=== PATIENT | female | born 1950 | race Caucasian/White ===

== ENCOUNTER 2017-02-08 10:33 | Emergency (ER) | payer BC ==
--- NOTE | 2017-02-08 11:50 | UC ---
Valencia Villareal Rebecca, scribed for Soila Dillon MD on 02/08/17 at 1145 . Upper Extremity HPI - HPI Summary HPI Summary: Pt is a 66 y/o F accompanied by who presents to [facility] 1 month s/p CABG c/o L shoulder pain, left upper back. Pain began last night, described that it was "just killing" her. She took Oxycodone which completely resolved sx in 1.5 hours. Pt without pain since. Pain was characterized as stabbing and is currently ranked as 0/10. Pt denies cp, sob, abd pain. No nausea, vomiting. No lightheadedness. No marley, vision changes. PT without h/o similar. Pt relates pain to sleeping "funny" on it. No change in pain with movement. Sx alleviated by oxycodone, aggravated by nothing. Denies any back pain, CP, SOB, nausea, diaphoresis, MARLEY, lightheadedness. States that after her surgery, she has had difficulty sleeping, tossing and turning significantly last night. Takes 81 mg ASA and is not on any other blood thinners. PSHx cardiac catheterization recently. 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 PMHx arthritis. No PMHx UT, CVA. Drawer In Hand is Dr. Ortiz. - History of Current Complaint Chief Complaint: UCUpperExtremity Stated Complaint: LEFT SHOULDER PAIN-(POST OPEN HEART SURG) Hx Obtained From: Patient Onset/Duration: Lasting Days - Yesterday, Resolved Severity Initially: Severe Severity Currently: None Pain Intensity: 0 Pain Scale Used: 0-10 Numeric Location Of Pain: Is Discrete @ - L shoulder Character: Sharp - Stabbing Aggravating Factor(s): Adduction Alleviating Factor(s): Other: - Oxycodone Associated Signs And Symptoms: Positive: Negative - Allergies/Home Medications Allergies/Adverse Reactions: Allergies Allergy/AdvReac Type Severity Reaction Status Date / Time Homatropine Allergy Upset Verified 02/08/17 11:15 [From Hydrocodone Compound] Stomach Hydrocodone Allergy Unknown Verified 02/08/17 11:15 [From Hydrocodone Compound] Reaction Details Home Medications: Home Medications oxyCODONE/Acetamin 5/325 MG* [Percocet 5/325 TAB*] 1 tab PO Q4H PRN 02/08/17 [ History Confirmed 02/08/17] PMH/Surg Hx/FS Hx/Imm Hx - Additional Past Medical History Additional PMH: Arthritis - Surgical History Surgical History: Yes Surgery Procedure, Year, and Place: LEFT BREAST LUMPECTOMY 1989,2 CSECTIONS, PARTIAL PARATYROID REMOVAL. Open Heart Surgery 2017 - Family History Known Family History: Positive: Cardiac Disease, Hypertension, Diabetes - Social History Lives: With Family Alcohol Use: None Substance Use Type: None Smoking Status (MU): Never Smoked Tobacco Review of Systems Constitutional: Negative Skin: Negative Eyes: Negative ENT: Negative Respiratory: Negative Cardiovascular: Negative Gastrointestinal: Negative Genitourinary: Negative Motor: Negative Neurovascular: Negative Musculoskeletal: Other: - L shoudler pain Neurological: Negative Psychological: Negative All Other Systems Reviewed And Are Negative: Yes Physical Exam Triage Information Reviewed: Yes Appearance: Well-Appearing, No Pain Distress, Well-Nourished Vital Signs: Initial Vital Signs Temp 97.8 F 02/08/17 11:10 Pulse 64 02/08/17 11:10 Resp 18 02/08/17 11:10 BP 97/54 02/08/17 11:10 Pulse Ox 93 02/08/17 11:10 Eye Exam: Normal ENT Exam: Normal ENT: Positive: Hearing grossly normal Neck exam: Normal Neck: Positive: Supple, Nontender, No Lymphadenopathy Respiratory Exam: Normal Respiratory: Positive: Chest non-tender, Lungs clear, Normal breath sounds Cardiovascular Exam: Normal Cardiovascular: Positive: RRR, No Murmur, Pulses Normal Abdominal Exam: Normal Abdomen Description: Positive: Nontender, No Organomegaly, Soft Bowel Sounds: Positive: Present Musculoskeletal: Positive: Other: - No pain with palpation c/t/l/s Full AROM c spine No pain with palpation of left posterior shoulder, scapula, shoulder Full flex/ext shoulder, elbow + abduct against resistance + pronate/supinate without pain 5/5 strength testing throughout upper ext without difficulty or weakness Neurological Exam: Normal Neurological: Positive: Other: - + thumb up, a ok, finger spread, finger crosee Psychological Exam: Normal Skin Exam: Normal Diagnostics - EKG Cardiac Rate: NL - 65 bpm Cardiac Rhythm: Sinus: Normal ST Segment: Non-Specific - Minimal ST elevations in V2, inverted T waves in V3 Upper Extremity Course/Dx - Course Course Of Treatment: Pt presents with episode of left posterior upper back and left shoulder pain during the night - relieved by oxycodone. Pain is not reproducible on exam and ROM activity. Pt EKG with minimal ST elevation in II and inverted T wave in 3 - new fomr 01/23/17 EKG faxef rom dot net developer. Pt with open heart surgery 1 month ago. recommend pt transfer to ED for further testing and eval. Pt comfortable and in agreement with plan. Pt declined EMS - AMA signed. report to ED - Differential Dx/Diagnosis Provider Diagnoses: resolved shoulder and back pain, not reproducible - Physician Notification/Consults Discussed Patient Care With: Amnada Orozco Time Discussed With Above Provider: 11:47 Instructed by Provider To: Other - Accepts pt for transfer Discharge - Discharge Plan Condition: Stable Disposition: TRANS HIGHER LVL OF CARE FAC Referrals: Solomon Matamoros MD [Primary Care Provider] - Additional Instructions: - Go directly to the emergency department in [place] - they are expecting you - you have declined the ambulance - if you have any symptoms, pain, or other concerns jawbone puller and call [phone] The documentation as recorded by the Valencia finn Rebecca accurately reflects the service I personally performed and the decisions made by , Soila Dillon MD.
[2017-02-08 12:03] VITALS: BP 93/61
== END 2017-02-08 11:58 | disposition short-term general hospital (02) ==
LOC: UCEAST 10:33
DX: M25.512 Pain in left shoulder (principal); Z98.890 Other specified postprocedural states
CPT/HCPCS: 93005; 99212; G0463

== ENCOUNTER 2017-02-08 12:22 | Emergency (ER) | payer BC ==
[2017-02-08 17:11] LABS: Hematocrit 36 % (35-47); Hemoglobin 11.2 g/dl (12.0-16.0); Mean Corpuscular HGB Conc 32 g/dl (31-36); Mean Corpuscular Hemoglobin 29 pg (27-31); Mean Corpuscular Volume 92 fL (80-97); Mean Platelet Volume 9 um3 (7.4-10.4); Red Blood Count 3.88 10^6/ul (4.0-5.4); Red Cell Distribution Width 14 % (10.5-15); White Blood Count 14.1 10^3/ul (3.5-10.8)
[2017-02-08 17:13] LABS: Add Diff/Slide Review? Slide Review Added; Comments Flag Yes
[2017-02-08 17:22] LABS: Albumin 3.8 g/dL (3.2-5.2); BUN/Creatinine Ratio 19.7 (8-20); Calcium 10.4 mg/dL (8.6-10.3); EGFR African American 54.5 (>60); EGFR Non-African American 42.4 (>60); Globulin 3.4 g/dL (2-4); Potassium 4.2 mmol/L (3.5-5.0); Total Bilirubin 0.9 mg/dL (0.2-1.0); Total Protein 7.2 g/dL (6.4-8.9)
[2017-02-08 17:25] LABS: Troponin I 0.01 ng/mL (<0.04)
--- NOTE | 2017-02-08 18:17 | RAD ---
INDICATION: Chest pain COMPARISON: Similar chest x-ray February 10, 2009 TECHNIQUE: Single AP portable view of the chest was obtained. FINDINGS: Image quality is compromised due to the relative inferiority of a portable chest x-ray. Postoperative findings include sternotomy wires and surgical clips overlying the left axilla. There is mild to moderate cardiomegaly. Bilaterally the lung bases are obscured and there is bibasilar costophrenic angle blunting. Pulmonary vasculature appears mildly engorged. Visualized bones are normal for the patient's age. IMPRESSION: Chest x-ray findings could be compatible with cardiogenic pulmonary edema in the correct clinical setting.
[2017-02-08 18:39] VITALS: BP 109/64
--- NOTE | 2017-02-08 18:53 | ED ---
Jorge Villareal Auryana, scribed for Luc Jackson MD on 02/08/17 at 1638 . Upper Extremity Pain - HPI Summary HPI Summary: 66 year old female presents to the ED for left shoulder pain starting last night. The episode lasted until 02:00 AM this morning but is now resolved. Patient states that the pain was sharp and intermittently worse. She denies any nausea, vomiting, SOB, or any current pain. Recent shoulder pain was dissimilar to prior pain caused by arthritis. Pain was completely alleviated by Percocet taken early this morning. Patient referred to the ED for further evaluation of her symptom - patient reports concern for a potential cardiac cause due to PSHx CABG. PMHx is significant for arthritis and CABG - 1 month. - History of Current Complaint Chief Complaint: EDGeneral Stated Complaint: POSS HEART ISSUE/ FROM CC Time Seen by Provider: 02/08/17 16:31 Hx Obtained From: Patient Onset/Duration: Started Hours Ago, Resolved Timing: Lasting Hours Severity Initially: Moderate Severity Currently: None Pain Location: Shoulder - left Character: Sharp Alleviating Factor(s): Other - Percocet Associated Signs & Symptoms: Positive: Negative. Negative: SOB, Nausea, Vomiting - Allergies/Home Medications Allergies/Adverse Reactions: Allergies Allergy/AdvReac Type Severity Reaction Status Date / Time Homatropine Allergy Upset Verified 02/08/17 11:15 [From Hydrocodone Compound] Stomach Hydrocodone Allergy Unknown Verified 02/08/17 11:15 [From Hydrocodone Compound] Reaction Details Home Medications: Home Medications Aspirin EC Low Dose* [Ecotrin EC Low Dose 81 MG*] 81 mg PO DAILY 02/08/17 [ History Confirmed 02/08/17] Ibuprofen TAB* [Advil TAB*] 200 - 600 mg PO Q4HR PRN 02/08/17 [History Confirmed 02/08/17] Lisinopril TAB* [Prinivil TAB*] 20 mg PO DAILY 02/08/17 [History Confirmed 02/08] Risedronate (NF) [Actonel (NF)] 150 mg PO MONTHLY 02/08/17 [History Confirmed ] PMH/Surg Hx/FS Hx/Imm Hx Endocrine/Hematology History: Reports: Hx Thyroid Disease - enlarged Denies: Hx Diabetes, Hx Anemia Cardiovascular History: Reports: Hx Hypertension Denies: Hx Pacemaker/ICD Respiratory History: Denies: Hx Asthma, Hx Chronic Obstructive Pulmonary Disease (COPD) GI History: Denies: Hx Jaundice, Hx Ulcer Sensory History: Denies: Hx Hearing Aid Psychiatric History: Denies: Hx Panic Disorder - Cancer History Hx Chemotherapy: Yes - BREAST Hx Radiation Therapy: Yes - BREAST - Surgical History Surgery Procedure, Year, and Place: LEFT BREAST LUMPECTOMY 1989,2 CSECTIONS, PARTIAL PARATYROID REMOVAL. Open Heart Surgery 2016 Infectious Disease History: No Infectious Disease History: Denies: Hx Hepatitis, Hx Human Immunodeficiency Virus (HIV), Traveled Outside the [place] in Last 30 Days - Family History Known Family History: Positive: Cardiac Disease, Hypertension, Diabetes - Social History Alcohol Use: None Substance Use Type: Reports: None Smoking Status (MU): Never Smoked Tobacco Review of Systems Constitutional: Negative Negative: Fever Eyes: Negative ENT: Negative Cardiovascular: Negative Respiratory: Negative Negative: Shortness Of Breath Gastrointestinal: Negative Negative: Vomiting, Nausea Genitourinary: Negative Positive: Myalgia - left shoulder pain, currently resolved Skin: Negative Neurological: Negative Psychological: Normal All Other Systems Reviewed And Are Negative: Yes Physical Exam - Summary Physical Exam Summary: VITAL SIGNS: Reviewed. GENERAL: Patient is a well-developed and nourished FEMALE who is lying comfortable in the stretcher. Patient is not in any acute respiratory distress. HEAD AND FACE: No signs of trauma. No ecchymosis, hematomas or skull depressions. No sinus tenderness. EYES: PERRLA, EOMI x 2, No injected conjunctiva, no nystagmus. EARS: Hearing grossly intact. Ear canals and tympanic membranes are within normal limits. MOUTH: Oropharynx within normal limits. NECK: Supple, trachea is midline, no adenopathy, no JVD, no carotid bruit, no c- spine tenderness, neck with full ROM. CHEST: Symmetric, no tenderness at palpation LUNGS: Clear to auscultation bilaterally. No wheezing or crackles. CVS: Regular rate and rhythm, S1 and S2 present, no murmurs or gallops appreciated. ABDOMEN: Soft, non-tender. No signs of distention. No rebound no guarding, and no masses palpated. Bowel sounds are normal. EXTREMITIES: FROM in all major joints, no edema, no cyanosis or clubbing. NEURO: Alert and oriented x 3. No acute neurological deficits. Speech is normal and follows commands. SKIN: Dry and warm. Triage Information Reviewed: Yes Vital Signs On Initial Exam: Initial Vitals Temp Pulse Resp BP Pulse Ox 97.9 F 62 18 98/51 94 02/08/17 12:29 02/08/17 12:29 02/08/17 12:29 02/08/17 12:29 02/08/17 12:29 Vital Signs Reviewed: Yes Diagnostics - Vital Signs Vital Signs Temp Pulse Resp BP Pulse Ox 02/08/17 16:25 97.9 F 64 18 120/63 95 02/08/17 12:29 97.9 F 62 18 98/51 94 - Laboratory Lab Results: Lab Results 02/08/17 02/08/17 02/08/17 Range/Units 13:25 16:35 16:35 WBC 14.1 H (3.5-10.8) 10^3/ul RBC 3.88 L (4.0-5.4) 10^6/ul Hgb 11.2 L (12.0-16.0) g/dl Hct 36 (35-47) % MCV 92 (80-97) fL MCH 29 (27-31) pg MCHC 32 (31-36) g/dl RDW 14 (10.5-15) % Plt Count 214 (150-450) 10^3/ul MPV 9 (7.4-10.4) um3 Neut % (Auto) 61.9 (38-83) % Lymph % (Auto) 19.6 L (25-47) % Power % (Auto) 16.7 H (1-9) % Eos % (Auto) 1.3 (0-6) % Baso % (Auto) 0.5 (0-2) % Absolute Neuts (auto) 8.7 H (1.5-7.7) 10^3/ul Absolute Lymphs (auto) 2.8 (1.0-4.8) 10^3/ul Absolute Monos (auto) 2.4 H (0-0.8) 10^3/ul Absolute Eos (auto) 0.2 (0-0.6) 10^3/ul Absolute Basos (auto) 0.1 (0-0.2) 10^3/ul Absolute Nucleated RBC 0.01 10^3/ul Nucleated RBC % 0.1 Sodium 135 (133-145) mmol/L Potassium 4.2 (3.5-5.0) mmol/L Chloride 106 (101-111) mmol/L Carbon Dioxide 22 (22-32) mmol/L Anion Gap 7 (2-11) mmol/L BUN 25 H (6-24) mg/dL Creatinine 1.27 H (0.51-0.95) mg/dL Est GFR ( Amer) 54.5 (>60) Est GFR (Non-Af Amer) 42.4 (>60) BUN/Creatinine Ratio 19.7 (8-20) Glucose 126 H (70-100) mg/dL Lactic Acid (0.5-2.0) mmol/L Calcium 10.4 H (8.6-10.3) mg/dL Total Bilirubin 0.90 (0.2-1.0) mg/dL AST 14 (13-39) U/L ALT 11 (7-52) U/L Alkaline Phosphatase 35 (34-104) U/L Troponin I 0.01 (<0.04) ng/mL B-Natriuretic Peptide 224 H ( - 100) pg/mL Total Protein 7.2 (6.4-8.9) g/dL Albumin 3.8 (3.2-5.2) g/dL Globulin 3.4 (2-4) g/dL Albumin/Globulin Ratio 1.1 (1-3) /14/ Range/Units 16:35 WBC (3.5-10.8) 10^3/ul RBC (4.0-5.4) 10^6/ul Hgb (12.0-16.0) g/dl Hct (35-47) % MCV (80-97) fL MCH (27-31) pg MCHC (31-36) g/dl RDW (10.5-15) % Plt Count (150-450) 10^3/ul MPV (7.4-10.4) um3 Neut % (Auto) (38-83) % Lymph % (Auto) (25-47) % Power % (Auto) (1-9) % Eos % (Auto) (0-6) % Baso % (Auto) (0-2) % Absolute Neuts (auto) (1.5-7.7) 10^3/ul Absolute Lymphs (auto) (1.0-4.8) 10^3/ul Absolute Monos (auto) (0-0.8) 10^3/ul Absolute Eos (auto) (0-0.6) 10^3/ul Absolute Basos (auto) (0-0.2) 10^3/ul Absolute Nucleated RBC 10^3/ul Nucleated RBC % Sodium (133-145) mmol/L Potassium (3.5-5.0) mmol/L Chloride (101-111) mmol/L Carbon Dioxide (22-32) mmol/L Anion Gap (2-11) mmol/L BUN (6-24) mg/dL Creatinine (0.51-0.95) mg/dL Est GFR ( Amer) (>60) Est GFR (Non-Af Amer) (>60) BUN/Creatinine Ratio (8-20) Glucose (70-100) mg/dL Lactic Acid 1.7 (0.5-2.0) mmol/L Calcium (8.6-10.3) mg/dL Total Bilirubin (0.2-1.0) mg/dL AST (13-39) U/L ALT (7-52) U/L Alkaline Phosphatase (34-104) U/L Troponin I (<0.04) ng/mL B-Natriuretic Peptide ( - 100) pg/mL Total Protein (6.4-8.9) g/dL Albumin (3.2-5.2) g/dL Globulin (2-4) g/dL Albumin/Globulin Ratio (1-3) Result Diagrams: 02/08/17 16:35 02/08/17 16:35 Lab Statement: Any lab studies that have been ordered have been reviewed, and results considered in the medical decision making process. - Radiology CXR Xray Interpretation: Positive (See Comments) - IMPRESSION: Chest x-ray findings could be compatible with cardiogenic pulmonary edema in the correct clinical setting. Radiology Interpretation Completed By: Radiologist - EKG 12:39 EKG Interpretation: Sinus rhythm at 64 bpm. EKG is similar to previous EKG from 01/23/17 Course/Dx - Course Assessment/Plan: 66 year old female presents to the ED for left shoulder pain ( currently resolved) from last night to 02:00am this morning. Patient states that the pain was sharp and waxing and waning. She denies any nausea, vomiting, SOB, or current pain. Recent shoulder pain was dissimilar to prior pain caused by arthritis. Pain was completely alleviated by Percocet taken early this morning. Patient presented to [facility] today where they showed concern for a potential cardiac cause due to PSHx CABG. PMHx is significant for arthritis. CBC shows WBC 14.1 without bands. He has chronic renal failure. CXR shows findings compatible with cardiogenic pulmonary edema in correct clinical. However patient has no chest pain and no SOB. She denies any other complaints today. The reason she came in today is because she is in cardiac rehab and yesterday she had an episode of left shoulder pain, relieved with Percocet. EKG no acute changes similar to previous EKG. Since patient is asymptomatic, she will be discharge home with follow up with PCP. I discussed all the findings and test results with the patient. Patient was instructed to return to the emergency room immediately if any of the symptoms return or worsens . Plan of care was discussed with the patient and understands and agrees. All questions were answered at patient satisfaction. There were no further complaints or concerns. Lung exam before discharge: CTA B/L. Good air exchange. No wheezing or crackles heard. CVS: S1 and S2 present. No murmurs appreciated. Patient is alert and oriented x 3. Patient is hemodynamically stable. Patient will be discharged home with follow up speeder frame tender in the next 2-3 days - Diagnoses Differential Diagnosis/HQI/PQRI: Positive: Arthritis, Bursitis, Fracture (Closed ) Provider Diagnoses: Left shoulder pain Discharge - Discharge Plan Condition: Stable Disposition: HOME Patient Education Materials: Shoulder Pain (ED) Referrals: Solomon Matamoros MD [Primary Care Provider] - 2 Days The documentation as recorded by the Jorge finn Auryana accurately reflects the service I personally performed and the decisions made by me, Luc Jackson MD.
== END 2017-02-08 18:39 | disposition home or self-care (01) ==
LOC: ED 12:22
DX: M25.512 Pain in left shoulder (principal)
CPT/HCPCS: 36415; 71010; 80053; 83605; 83880; 84484; 85025; 93005; 99282